=== PATIENT | female | born 1975 | race Two or more races ===

== ENCOUNTER → 2020-11-08 | Outpatient (CLI) | payer OTHER ==
[2020-11-08 09:47] LABS: CHOLESTEROL/HDL RATIO 2.8
[2020-11-08 09:54] LABS: FREE T4 1.33 ng/dL (0.76-1.46); THYROID STIM HORMONE (TSH) 1.217 uIU/mL (0.358-3.74)
[2020-11-08 11:05] LABS: ANISOCYTOSIS PRESENT; MICROCYTOSIS PRESENT; PLT ESTIMATE ADEQUATE (ADEQUATE)
[2020-11-08 11:11] LABS: BASO # 0.1 x10^3/uL (0.0-0.2); BASO % 2 % (0-3); EOS # 0.2 x10^3/uL (0.0-0.7); EOS % 3 % (0-3); HEMOGLOBIN 7.7 g/dL (12.0-15.5); LYMPH # 2.2 x10^3/uL (1.0-4.8); LYMPH % 44 % (24-48); MEAN CORPUSCULAR HEMOGLOBIN 17 pg (25-35); MEAN CORPUSCULAR HGB CONC 30 g/dL (31-37); MEAN CORPUSCULAR VOLUME 59 fL (79-100); MONO # 0.4 x10^3/uL (0.0-1.1); MONO % 7 % (0-9); NEUT # 2.2 x10^3/uL (1.8-7.7); NEUT % 43 % (31-73); PLATELET COUNT 352 x10^3/uL (140-400); RED BLOOD COUNT 4.43 x10^6/uL (3.50-5.40); RED CELL DISTRIBUTION WIDTH 20.4 % (11.5-14.5)
[2020-11-08 21:10] LABS: PROLACTIN 25.6 ng/mL (4.8-23.3); TESTOSTERONE TOTAL 31 ng/dL (8-48)
== END ==
LOC: LAB 11-04 16:36
PROVIDERS: ATTEND Obstetrics & Gynecology
DX: N94.6 Dysmenorrhea, unspecified (principal); N93.9 Abnormal uterine and vaginal bleeding, unspecified
CPT/HCPCS: 36415; 80061; 82627; 84146; 84403; 84439; 84443; 85025

== ENCOUNTER 2020-12-23 06:27 | Day surgery (SDC) | payer OTHER ==
[~2020-12-23 06:27] MED LIST: HYDROmorphone 2 MG/ML VIAL IVP PRN; IV RINGERS,LACTATED 1000ML 1,000 ML IV SCH; MORPHINE SULFATE 2 MG/ML VIAL. IVP PRN; PROCHLORPERAZINE 10 MG/2 ML VIAL. IVP PRN; fentaNYL PF VIAL 100 MCG/2 ML VIAL IVP PRN
[2020-12-23] MEDS ORDERED: FERR325T14 PO (06:51)
[2020-12-23] MEDS ORDERED: OMEP20TA8 PO (06:51)
[2020-12-23] MEDS ORDERED: ceFAZolin SODIUM IV Push 1 GM VIAL. IVP PRN (07:00)
[2020-12-23] MEDS ORDERED: ceFAZolin SODIUM IV Push 1 GM VIAL. IVP ONE (07:15)
[2020-12-23] MEDS ORDERED: MIDAZOLAM HCL/PF 2 MG/2 ML VIAL. ONE ×2 (07:32→07:40)
[2020-12-23] MEDS ORDERED: fentaNYL PF VIAL 100 MCG/2 ML VIAL ONE (07:39)
[2020-12-23] MEDS ORDERED: KETOROLAC 30 MG/ML VIAL. ONE (07:54)
[2020-12-23] MEDS ORDERED: PROPOFOL 10 MG/ML (20ML) VIAL. IV ONE (07:54)
[2020-12-23] MEDS ORDERED: DEXAMETHASONE SOD PHOS 4 MG/ML VIAL ONE (07:54)
[2020-12-23] MEDS ORDERED: LIDOCAINE 2% PF 5 ML VIAL. ONE (07:54)
[2020-12-23] MEDS ORDERED: ONDANSETRON PF 4 MG/2 ML VIAL. ONE (07:55)
[2020-12-23] MEDS ORDERED: FAMOTIDINE 20 MG/2 ML VIAL ONE (07:56)
[2020-12-23] MEDS ORDERED: SEVOFLURANE 16 TO 30 MINUTES. IH ONE (08:01)
--- NOTE | 2020-12-23 08:07 | PDOC ---
BRIEF OPERATIVE NOTE Date: Dec 23, 2020 Pre-Op Diagnosis 1. Menorrhagia 2. Dysmenorrhea Post-Op Diagnosis SAme Procedure Performed Endometrial Ablation Surgeon Dr. Todd Anesthesia Type: General Blood Loss 5 ml Specimens Obtained none Findings nml size uterus Complications none Operative Note see dictation SVITLANA TODD Jr, MD Dec 23, 2020 08:07
--- NOTE | 2020-12-23 08:08 | DISCH ---
DISCHARGE INSTRUCTIONS Condition on Discharge Condition on Discharge: Stable Activity After Discharge Activity Instructions for Disc: Activity as tolerated Lifting Instructions after Dis: No heavy lifting Driving Instructions after Dis: Do not drive today Diet after Discharge Diet after Discharge: Regular Contacting the DRReagan after DC Call your doctor for: Concerns you may have Follow-Up Follow up with: Dr. Todd in 3 weeks SVITLANA TODD Jr, MD Dec 23, 2020 08:08
--- NOTE | 2020-12-23 08:17 | OP ---
DATE OF SURGERY: 12/23/2020 PREOPERATIVE DIAGNOSES: 1. Menorrhagia. 2. Dysmenorrhea. POSTOPERATIVE DIAGNOSES: 1. Menorrhagia. 2. Dysmenorrhea. PROCEDURE: Endometrial ablation. SURGEON: Chemo Todd MD ANESTHESIA: GETA. ESTIMATED BLOOD LOSS: 5 mL. COMPLICATIONS: None. FINDINGS: Normal size uterus. SUMMARY: A 45-year-old with dysmenorrhea and menorrhagia, requiring surgical management in the form of endometrial ablation. She was counseled on risks, benefits and expectations and voiced clear understanding to proceed. DESCRIPTION OF PROCEDURE: The patient was taken to surgery suite and placed in dorsal lithotomy position, was prepped with Betadine solution and draped in sterile fashion. After adequate anesthesia, weighted speculum and curved [place] placed vaginally. Anterior lip of the cervix grasped with single tooth tenaculum. Uterus was sounded to 10 cm in length. The cervix was then dilated with Hegar dilators up to size 7. The NovaSure probe was then placed. Width was measured at 3 cm and length greater than 6.5 cm. The procedure cycle was completed after about 30-40 seconds. The probe was then removed. Single tooth tenaculum and weighted speculum were removed. The patient tolerated the procedure well and was taken to recovery room in stable condition. Sponge count correct x 3. CHEMO TODD MD DR: PRESLEY/giovanna JOB#: [id number] / [id number]
[2020-12-23] MEDS ORDERED: HYDR-2759 PO (08:29)
[2020-12-23] MEDS ORDERED: HYDROcodone/APAP 5/325MG 1 TAB TABLET PO ONE (08:45)
[2020-12-23 09:08] VITALS: BP 113/71
== END 2020-12-23 09:39 | disposition home or self-care (01) ==
LOC: SURG 06:27
PROVIDERS: ATTEND Obstetrics & Gynecology
DX: N92.0 Excessive and frequent menstruation with regular cycle (principal); N94.6 Dysmenorrhea, unspecified; K21.9 Gastro-esophageal reflux disease without esophagitis; Z79.899 Other long term (current) drug therapy; Z98.890 Other specified postprocedural states; Z88.1 Allergy status to other antibiotic agents
CPT/HCPCS: 58353; 81025; J0690; J1100; J1885; J2250; J2405; J2704; J3010; J3490